=== PATIENT | female | born 1935 | race Caucasian/White ===

== ENCOUNTER 2021-07-15 13:05 | Emergency (ER) | payer MEDICARE, OTHER ==
[~2021-07-15] VITALS: Ht 157.5 cm; Wt 63.5 kg
[2021-07-15 13:30] LABS: HEMATOCRIT 38.6 % (31.2-41.9); MEAN CORPUSCULAR HEMOGLOBIN 31.6 uug (24.7-32.8); MEAN CORPUSCULAR VOLUME 92.7 fL (75.5-95.3); PLATELET COUNT (AUTO) 310 K/uL (179-408)
[2021-07-15 13:35] LABS: CREATININE 1.1 mg/dL (0.6-1.3); POTASSIUM 4.2 mmol/L (3.5-5.1)
[2021-07-15 13:38] LABS: MAGNESIUM 2.1 mg/dL (1.8-2.4); PHOSPHOROUS 4.5 mg/dL (2.5-4.9)
[2021-07-15 13:41] LABS: BILIRUBIN,DIRECT 0.2 mg/dL (0.0-0.2); BILIRUBIN,TOTAL 0.7 mg/dL (0.2-1.0)
[2021-07-15 14:49] LABS: *BILIRUBIN,URIN NEGATIVE (NEGATIVE); *BLOOD, URINE NEGATIVE (NEGATIVE); *CLARITY,URINE CLEAR (CLEAR); *COLOR,URINE YELLOW (YELLOW); *KETONES,URINE NEGATIVE (NEGATIVE); LEUKOCYTE ESTERASE ,URINE NEGATIVE (NEGATIVE); NITRITE, URINE NEGATIVE (NEGATIVE); UGLUCOSE NEGATIVE (NEGATIVE)
--- NOTE | 2021-07-15 16:18 | NUR ---
Patient discharged to home in stable condition. Written and verbal after care instructions given Dr Castanon. Patient and son verbalizes understanding of instructions. Stressed follow up or return to ER for worsening s/s.
[2021-07-15 16:19] VITALS: BP 157/51
== END 2021-07-15 16:20 | disposition home or self-care (01) ==
LOC: ER 13:05
DX: S09.90XA Unspecified injury of head, initial encounter (principal); S16.1XXA Strain of muscle, fascia and tendon at neck level, initial encounter; W01.0XXA Fall on same level from slipping, tripping and stumbling without subsequent striking against object, initial encounter; Y92.89 Other specified places as the place of occurrence of the external cause; F03.90 Unspecified dementia, unspecified severity, without behavioral disturbance, psychotic disturbance, mood disturbance, and anxiety; I44.7 Left bundle-branch block, unspecified
CPT/HCPCS: 36415; 70030-TC; 70450; 71045; 72125; 83735; 84100; 85025; 93005; A4663

== ENCOUNTER 2021-11-26 11:06 | Emergency (ER) | payer MEDICARE, OTHER ==
[~2021-11-26] VITALS: Ht 160 cm; Wt 68.0 kg
--- NOTE | 2021-11-26 11:18 | NUR ---
PT IS IN ROOM #2A. DR VALLEJO EVALUATED THE PT.
[2021-11-26] MEDS ORDERED: ONDANSETRON 4 MG/2 ML VIAL IV ONE ×2 (11:30→14:00)
[2021-11-26] MEDS ORDERED: MORPHINE SULFATE 2 MG/1 ML DISP.SYRIN IV ONE (11:30)
[2021-11-26] MEDS ORDERED: ONDANSETRON 4 MG/2 ML VIAL ONE ×2 (11:52→14:17)
[2021-11-26] MEDS ORDERED: MORPHINE SULFATE 4 MG/1 ML DISP.SYRIN ONE ×2 (11:52→14:16)
[2021-11-26 12:06] LABS: HEMATOCRIT 40.9 % (31.2-41.9); MEAN CORPUSCULAR HEMOGLOBIN 30.9 uug (24.7-32.8); MEAN CORPUSCULAR VOLUME 91.1 fL (75.5-95.3); PLATELET COUNT (AUTO) 387 K/uL (179-408)
[2021-11-26 12:12] LABS: CARBON DIOXIDE 30 mmol/L (21-32); CHLORIDE 100 mmol/L (98-107); CREATININE 1.2 mg/dL (0.6-1.3); GLUCOSE 124 mg/dL (74-106); POTASSIUM 3.6 mmol/L (3.5-5.1); UREA NITROGEN, BLOOD 27 mg/dL (7-18)
[2021-11-26 12:25] LABS: ALANINE AMINOTRANSFERASE 22 U/L (14-59); ALKALINE PHOSPHATASE 83 U/L (50-136); ASPARTATE AMINOTRANSFERASE 7 U/L (15-37); BILIRUBIN,DIRECT 0.2 mg/dL (0.0-0.2); BILIRUBIN,TOTAL 0.9 mg/dL (0.2-1.0); TOTAL PROTEIN, SERUM 7.6 g/dL (6.4-8.2)
[2021-11-26 13:06] LABS: *BILIRUBIN,URIN NEGATIVE (NEGATIVE); *BLOOD, URINE NEGATIVE (NEGATIVE); *COLOR,URINE YELLOW (YELLOW); *KETONES,URINE NEGATIVE (NEGATIVE); *UROBILINOGEN,URINE 0.2 E.U./dl (NORMAL); LEUKOCYTE ESTERASE ,URINE TRACE (NEGATIVE); NITRITE, URINE NEGATIVE (NEGATIVE); PH,URINE 5.5 (5.0-8.0); UGLUCOSE NEGATIVE (NEGATIVE)
[2021-11-26] MEDS ORDERED: HYDR-3972 PO (13:55)
[2021-11-26] MEDS ORDERED: MORPHINE SULFATE 4 MG/1 ML DISP.SYRIN IV ONE (14:00)
--- NOTE | 2021-11-26 14:39 | NUR ---
PT WAS D/C'd TO HOME. D/C INSTRUCTIONS GIVEN TO THE PT BY DR VALLEJO.
[2021-11-26 14:40] VITALS: BP 142/79
[2021-11-26 17:36] LABS: *CLARITY,URINE HAZY (CLEAR)
[2021-11-26 17:37] LABS: BACTERIA,URINE MODERATE /HPF (NONE SEEN); RBC,URINE 0-3 /HPF (0-3); SQUAMOUS EPITHELIAL CELL,UR FEW /HPF (NONE SEEN); URINE AMORPHOUS URATE FEW /HPF
== END 2021-11-26 14:41 | disposition home or self-care (01) ==
LOC: ER 11:06
DX: G89.29 Other chronic pain (principal); M54.2 Cervicalgia; M54.9 Dorsalgia, unspecified; F03.90 Unspecified dementia, unspecified severity, without behavioral disturbance, psychotic disturbance, mood disturbance, and anxiety; Z98.1 Arthrodesis status; M51.36 Other intervertebral disc degeneration, lumbar region; R29.6 Repeated falls; K21.9 Gastro-esophageal reflux disease without esophagitis; E78.5 Hyperlipidemia, unspecified; I10 Essential (primary) hypertension; M51.34 Other intervertebral disc degeneration, thoracic region
CPT/HCPCS: 36415; 70450; 72125; 72128; 72131; 80048; 80076; 81001; 83880; 84484; 85025; 85730; 87086; 96374; 96375; 96376; 99285; J2270 ×2; J2405 ×2; A4663; J7030

== ENCOUNTER 2022-04-12 10:26 | Inpatient (IN) | payer MEDICARE, OTHER ==
[~2022-04-12] VITALS: Ht 160 cm; Wt 63.6 kg
[~2022-04-12 10:26] MED LIST: HYDR-3972 PO
[2022-04-12] MEDS ORDERED: SWABABLE VALVE TRANSFER SET EA MC ONE (11:09)
[2022-04-12] MEDS ORDERED: IOHEXOL 350 100 ML INFUS..BTL ONE (11:09)
[2022-04-12] MEDS ORDERED: IV NORMAL SALINE 250 ML IV ONE (11:09)
[2022-04-12] MEDS ORDERED: MORPHINE SULFATE 2 MG/1 ML DISP.SYRIN IV ONE ×2 (11:15→13:15)
[2022-04-12] MEDS ORDERED: ONDANSETRON 4 MG/2 ML VIAL IV ONE (11:15)
[2022-04-12] MEDS ORDERED: IV NS 1000 ML 1,000 ML IV ONE (11:15)
[2022-04-12 11:21] LABS: HEMATOCRIT 38.2 % (31.2-41.9); MEAN CORPUSCULAR HEMOGLOBIN 31.1 uug (24.7-32.8); PLATELET COUNT (AUTO) 338 K/uL (179-408)
[2022-04-12 11:33] LABS: CARBON DIOXIDE 28 mmol/L (21-32); CHLORIDE 101 mmol/L (98-107); CREATININE 1.1 mg/dL (0.6-1.3); GLUCOSE 169 mg/dL (74-106); POTASSIUM 3.8 mmol/L (3.5-5.1); UREA NITROGEN, BLOOD 39 mg/dL (7-18)
[2022-04-12 11:35] LABS: ETHANOL < 3 MG/DL (0-0)
[2022-04-12] MEDS ORDERED: ONDANSETRON 4 MG/2 ML VIAL ONE (11:37)
[2022-04-12] MEDS ORDERED: MORPHINE SULFATE 2 MG/1 ML DISP.SYRIN ONE ×2 (11:37→13:11)
[2022-04-12 11:47] LABS: ALANINE AMINOTRANSFERASE 22 U/L (14-59); ALKALINE PHOSPHATASE 103 U/L (50-136); ASPARTATE AMINOTRANSFERASE 21 U/L (15-37); BILIRUBIN,DIRECT 0.4 mg/dL (0.0-0.2); BILIRUBIN,TOTAL 1.5 mg/dL (0.2-1.0); LIPASE 35 U/L (73-393); TOTAL PROTEIN, SERUM 6.8 g/dL (6.4-8.2)
[2022-04-12] MEDS ORDERED: DIAZEPAM 10 MG/2 ML DISP.SYRIN IV STA (13:12)
[2022-04-12] MEDS ORDERED: DIAZEPAM 10 MG/2 ML DISP.SYRIN ONE (13:15)
[2022-04-12] MEDS ORDERED: METHOCARBAMOL 1000 MG/10 ML VIAL IV ONE (13:15)
[2022-04-12 16:03] LABS: *BILIRUBIN,URIN 1+ (NEGATIVE); *BLOOD, URINE NEGATIVE (NEGATIVE); *CLARITY,URINE CLEAR (CLEAR); *COLOR,URINE DARK YELLOW (YELLOW); *KETONES,URINE 1+ (NEGATIVE); LEUKOCYTE ESTERASE ,URINE NEGATIVE (NEGATIVE); NITRITE, URINE NEGATIVE (NEGATIVE); PH,URINE 5.5 (5.0-8.0); UGLUCOSE NEGATIVE (NEGATIVE)
[2022-04-12 16:13] LABS: *AMPHETAMINE, URINE POSITIVE (NEGATIVE); *CANNABINOID, URINE NEGATIVE (NEGATIVE); *COCCAINE, URINE NEGATIVE (NEGATIVE); *OPIATE, URINE POSITIVE (NEGATIVE); *PHENCYCLIDINE SCREEN,URINE NEGATIVE (NEGATIVE)
[2022-04-12] MEDS ORDERED: ONDANSETRON 4 MG/2 ML VIAL IV PRN (18:15)
[2022-04-12] MEDS ORDERED: ACETAMINOPHEN 650 MG SUPP.RECT RC PRN (18:15)
--- NOTE | 2022-04-12 18:43 | NUR ---
Patient will be going [id number]
--- NOTE | 2022-04-12 20:34 | NUR ---
called upstairs the nurse will be Christie, she is busy at this time and she will call back for report.
--- NOTE | 2022-04-12 21:00 | NUR ---
report was given to Christie MADERA pt to go to room 312
--- NOTE | 2022-04-12 21:20 | NUR ---
pt transported to room 312 via [facility] with all belongings, CASSY Soriano at bedside to receive the pt.
--- NOTE | 2022-04-12 21:21 | NUR ---
nursing assessment was not performed on the day shift, it was done now.
[2022-04-12 21:25] VITALS: BP 108/64
--- NOTE | 2022-04-12 21:25 | NUR ---
Received pt from er via [facility].Under the care of Dr. Mcconnell. dx:right hip fracture.Pt in no acute distress. Iv intact. Pt on 2l nasal cannula. Belonging list done. [facility] assessment done. Safety and comfort provided. Will continue to monitor.
[2022-04-12] MEDS: MORPHINE SULFATE 2 MG/1 ML DISP.SYRIN IV PRN (22:17)
[2022-04-12] MEDS: IV D5 1/2 NS 1000 ML 1,000 ML IV PRN (22:22)
[2022-04-12] MEDS ORDERED: ALBUTEROL SULFATE 2.5 MG/3 ML NEBU NEB PRN (22:30)
--- NOTE | 2022-04-12 23:00 | NUR ---
Dr. Pillai called and ordered IM nailing of right hip for the pt. Surgery will be done after medically cleared by city planner.
--- NOTE | 2022-04-12 23:30 | NUR ---
Pt given Morphine 2mg prn at 2217H for right hip pain. Pt tolerated it well. After an hour pt calmer and stated the medication helped a bit but there's still pain. Will continue to monitor.
[2022-04-13 00:03] VITALS: BP 130/66
--- NOTE | 2022-04-13 00:51 | NUR ---
Pt woked up and speaking to herself and asking herself where she is? what is she doing here? . Pt forgetful and reorientation. Will continue to monitor.
[2022-04-13] MEDS: LORAZEPAM 2 MG/1 ML VIAL IV PRN ×3 (01:13→23:30)
--- NOTE | 2022-04-13 02:30 | NUR ---
At 0113H Ativan 0.5mg prn given to pt anxiety, restless, and trying to pull out her lock catheter and IV. Pt tolerated it well. After an hour pt medication effective as evidenced by pt calmer and not pulling out lines. Pt stable. Will continue to monitor.
[2022-04-13 04:09] VITALS: BP 120/55
--- NOTE | 2022-04-13 05:47 | NUR ---
Pt slept intermittently. Pt in no acute respiratory distress. Iv intact. Pt have episodes of forgetfulness. Frequent orientation needed. Pt on sinus rhythm.Pt lock catheter intact and draining dark yellow colored urine.Prescribed medication given and pt tolerated it well. All needs are met. Safety and comfort provided. Will endorse to incoming nurse for continuity of care.
[2022-04-13 06:50] LABS: HEMATOCRIT 32.9 % (31.2-41.9); MEAN CORPUSCULAR HEMOGLOBIN 31.6 uug (24.7-32.8); MEAN CORPUSCULAR VOLUME 92.5 fL (75.5-95.3); PLATELET COUNT (AUTO) 251 K/uL (179-408)
[2022-04-13 07:24] LABS: ALANINE AMINOTRANSFERASE 34 U/L (14-59); ALKALINE PHOSPHATASE 79 U/L (50-136); ASPARTATE AMINOTRANSFERASE 34 U/L (15-37); BILIRUBIN,TOTAL 1.4 mg/dL (0.2-1.0); CARBON DIOXIDE 27 mmol/L (21-32); CHLORIDE 102 mmol/L (98-107); CHOLESTEROL 107 mg/dL (<200); CREATININE 0.7 mg/dL (0.6-1.3); GLUCOSE 148 mg/dL (74-106); HDL CHOLESTEROL 59 mg/dL (40-60); PHOSPHOROUS 2.8 mg/dL (2.5-4.9); TOTAL PROTEIN, SERUM 5.8 g/dL (6.4-8.2); TRIGLYCERIDES 91 MG/DL (30-150); UREA NITROGEN, BLOOD 26 mg/dL (7-18)
[2022-04-13 07:29] LABS: POTASSIUM 2.7 mmol/L (3.5-5.1)
[2022-04-13 07:43] LABS: THYROID STIMULATING HORMONE 0.572 mIU/mL (0.358-3.740)
[2022-04-13] MEDS: PANTOPRAZOLE SODIUM 40 MG VIAL IV SCH (08:39)
[2022-04-13] MEDS ORDERED: POTASSIUM CHLORIDE 20 MEQ POWDER PACKET GT ONE (09:00)
[2022-04-13] MEDS ORDERED: POTASSIUM CHLORIDE 20 MEQ POWDER PACKET PO ONE (09:00)
[2022-04-13] MEDS: POTASSIUM CHLORIDE 50 ML IV SCH ×5 (09:01→13:22)
[2022-04-13] MEDS ORDERED: BISO1TAB99 PO (10:21)
[2022-04-13] MEDS ORDERED: ATOR20TA PO (10:21)
[2022-04-13] MEDS ORDERED: ESCI20TA PO (10:21)
[2022-04-13] MEDS ORDERED: LEVO100T10 PO (10:21)
[2022-04-13] MEDS ORDERED: BUPR-319 PO (10:21)
[2022-04-13] MEDS ORDERED: MIRA50TA PO (10:21)
[2022-04-13] MEDS ORDERED: GABA-532 PO (10:21)
[2022-04-13] MEDS: MORPHINE SULFATE 2 MG/1 ML DISP.SYRIN IV PRN ×2 (11:01→20:04)
[2022-04-13 12:00] VITALS: BP 162/66
[2022-04-13 14:03] LABS: *AMPHETAMINE, URINE POSITIVE (NEGATIVE); *CANNABINOID, URINE NEGATIVE (NEGATIVE); *COCCAINE, URINE NEGATIVE (NEGATIVE); *OPIATE, URINE POSITIVE (NEGATIVE); *PHENCYCLIDINE SCREEN,URINE NEGATIVE (NEGATIVE)
[2022-04-13] MEDS: AMLODIPINE 10 MG TABLET PO SCH (14:15)
[2022-04-13 16:00] VITALS: BP 154/58
[2022-04-13] MEDS: IV D5 1/2 NS 1000 ML 1,000 ML IV PRN (16:55)
--- NOTE | 2022-04-13 19:04 | NUR ---
PT IS CONFUSED AT TIME. DR ORDERED MITTEN RESTRAINT. PT TRYING TO PULL LINE AND GET OUT OF THE BED. GAVE ATIVAN Q6HR PRN PER MD ORDER. PT ONLY HAVE 1 CUP OF APPLE JUICE AND A CUP OF PUDDING ALL DAY. DR CHINCHILLA WILL VISIT AROUND 9AM FOR CARDIAC CLEARANCE. PT IS SCHEDULED FOR SURGERY JEFFRE[facility] AT 10AM PER DR PACE. WILL ENDORSED TO UPCOMING SHIFT ON GETTING A CONSENT.
[2022-04-13 20:00] VITALS: BP 147/51
--- NOTE | 2022-04-13 20:00 | NUR ---
PT WAS CRYING AND SCREAMING, COMPLAINING OF PAIN. MORPHINE GIVEN ORDERED. PT IS ON BECKA MITTENS. SKIN CHECKS DONE. NO WOUND NOTED FROM RESTRAINTS. WILL CONTINUE TO MONITOR.
--- NOTE | 2022-04-13 23:30 | NUR ---
PT IS VERY AGITATED WANTING TO GET OUT OF BED AND TRYING TO REMOVE BECKA MITTENS. ATIVAN GIVEN MD ORDERED. ALL NEEDS ATTENDED. WILL CONTINUE TO MONITOR.
[2022-04-14] VITALS: BP 128/68
[2022-04-14] MEDS: MORPHINE SULFATE 2 MG/1 ML DISP.SYRIN IV PRN ×3 (01:35→16:31)
--- NOTE | 2022-04-14 02:00 | NUR ---
PT IS ON NPO OF THIS TIME FOR SCHEDULED SURGERY TODAY AT 10AM.
[2022-04-14 04:00] VITALS: BP 153/66
--- NOTE | 2022-04-14 06:00 | NUR ---
PLACED STAT ORDER FOR POTASSIUM. NEEDED FOR SURGERY PER OR NURSE IMELDA. LAB INFORMED.
--- NOTE | 2022-04-14 06:30 | NUR ---
CALLED SON ALEXANDRE FAULKNER TO GET CONSENT FOR SURGERY. WITNESSED BY ANOTHER RN. PREOP CHECKLIST DONE. WAITING FOR CARDIO CLEARANCE FROM DR. CHINCHILLA. WILL ENDORSE TO INCOMING RN.
[2022-04-14 06:56] LABS: HEMATOCRIT 35.4 % (31.2-41.9); MEAN CORPUSCULAR HEMOGLOBIN 31.8 uug (24.7-32.8); PLATELET COUNT (AUTO) 256 K/uL (179-408)
[2022-04-14 07:16] LABS: CARBON DIOXIDE 24 mmol/L (21-32); CHLORIDE 100 mmol/L (98-107); CREATININE 0.6 mg/dL (0.6-1.3); GLUCOSE 146 mg/dL (74-106); PHOSPHOROUS 1.9 mg/dL (2.5-4.9); POTASSIUM 3.7 mmol/L (3.5-5.1); UREA NITROGEN, BLOOD 13 mg/dL (7-18)
[2022-04-14] MEDS: AMLODIPINE 10 MG TABLET PO SCH (09:00)
[2022-04-14] MEDS: PANTOPRAZOLE SODIUM 40 MG VIAL IV SCH (09:10)
[2022-04-14] MEDS ORDERED: VANCOMYCIN 1000 MG VIAL ONE (09:17)
--- NOTE | 2022-04-14 09:17 | NUR ---
DR CHINCHILLA CLEARED PT FOR SX. DR PACE NOTIFIED. SX WILL PROCEED AT 10 AM. PT IS NPO SINCE 2AM. PT IS SLEEPING. FC DRAINING WELL. NO ACUTE DISTRESS NOTED.
--- NOTE | 2022-04-14 09:41 | NUR ---
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 PT IS SLEEPING. ON ROOM AIR. BECKA MITTENS IS STILL ON.
[2022-04-14] MEDS ORDERED: FENTANYL CITRATE 100 MCG/2 ML AMPUL ONE ×2 (10:04→12:06)
[2022-04-14] MEDS ORDERED: ROCURONIUM BROMIDE 50 MG/5 ML VIAL ONE (10:04)
[2022-04-14] MEDS ORDERED: MIDAZOLAM HCL 2 MG/2 ML VIAL ONE (10:04)
[2022-04-14] MEDS ORDERED: hydrALAZINE HCL 20 MG/1 ML VIAL ONE (12:00)
--- NOTE | 2022-04-14 13:00 | NUR ---
PT CAME BACK FROM SURGERY. AWAKE BUT CONFUSED. ELEVATED BP WAS NOTED. 144/48 HR 85 98% SATURATION. NEW ORDER WAS PLACE D5 1/2 NS 20MEQ KCL @ 70CC/HR, ANCEF 1G Q8H X3 FIRST DOSE 1050AM, MORPHINE SULFATE 2MG IV Q2HR, NORCO 10-325MG PO Q4HR. DIET TOLERATED.HEPLOCK AFTER
[2022-04-14 16:00] VITALS: BP 136/52
[2022-04-14] MEDS: POTASSIUM CHLORIDE 20 MEQ in IV D5 1/2 NS 1000 ML 1,000 ML IV PRN (16:31)
[2022-04-14] MEDS ORDERED: SODIUM PHOSPHATE MM 15 MMOL in IV NORMAL SALINE 250 ML IV ONE (17:00)
[2022-04-14] MEDS: LORAZEPAM 2 MG/1 ML VIAL IV PRN (17:32)
--- NOTE | 2022-04-14 18:00 | NUR ---
PT IS CONFUSED AND AGITATED.PUT ON BECKA MITTENS FOR SAFETY. PT IS PULING LINES. GAVE PRN ATIVAN 1MG.
--- NOTE | 2022-04-14 20:00 | NUR ---
patient in bed asleep , no s/s/ of respiratory distress breathing even and unlabored .patient able to moved upper and lower slow and weak . patient unbale to follow commands confused .SR on the heart monitor .no s/s of pain . right hip post op site dressing CDI .MCMAHON to bsd with yellowish urine . ivf in progress via the left ac with d5 1/2 ns at 20 kcl at 75 ml/hr.hob up . continue to monitor v/s .
[2022-04-14] MEDS: CEFAZOLIN 1 G in IV DEXTROSE 5% 50 ML IV SCH (20:49)
--- NOTE | 2022-04-14 21:30 | NUR ---
rounds made turned and reposition patient .due medication given and scan . . checked iv site patent . patient sleeping no s/s of pain .
[2022-04-15] VITALS: BP 139/56
[2022-04-15 04:00] VITALS: BP 166/64
[2022-04-15] MEDS: CEFAZOLIN 1 G in IV DEXTROSE 5% 50 ML IV SCH (04:23)
[2022-04-15] MEDS: POTASSIUM CHLORIDE 20 MEQ in IV D5 1/2 NS 1000 ML 1,000 ML IV PRN (06:23)
[2022-04-15 06:46] LABS: HEMATOCRIT 35.7 % (31.2-41.9); MEAN CORPUSCULAR HEMOGLOBIN 31.2 uug (24.7-32.8); MEAN CORPUSCULAR VOLUME 92.1 fL (75.5-95.3); PLATELET COUNT (AUTO) 321 K/uL (179-408)
[2022-04-15 07:05] LABS: CREATININE 0.7 mg/dL (0.6-1.3); MAGNESIUM 1.8 mg/dL (1.8-2.4); PHOSPHOROUS 2.4 mg/dL (2.5-4.9); POTASSIUM 3.4 mmol/L (3.5-5.1)
[2022-04-15] MEDS: POTASSIUM CHLORIDE 50 ML IV SCH ×2 (07:53→08:47)
--- NOTE | 2022-04-15 08:00 | NUR ---
RECEIVED PATIENT IN BED RESTING COMFORTABLY, NO SIGNS OF ACUTE PAIN OR DISTRESS, IN 2L NC SATURATING 100%
[2022-04-15] MEDS ORDERED: POTASSIUM PHOSPHATE MM 7.5 MMOL in IV NORMAL SALINE 97.5 ML IV ONE (08:30)
[2022-04-15] MEDS: PANTOPRAZOLE SODIUM 40 MG VIAL IV SCH (08:46)
[2022-04-15] MEDS: AMLODIPINE 10 MG TABLET PO SCH (08:46)
--- NOTE | 2022-04-15 09:00 | NUR ---
LOW POTASSIUM NOTED BY DR LOCKE WITH ORDERS
[2022-04-15] MEDS ORDERED: SODIUM PHOSPHATE MM 15 MMOL in IV NORMAL SALINE 250 ML IV ONE (09:30)
--- NOTE | 2022-04-15 10:00 | NUR ---
DR PACE NOTIFIED OF NEED FOR POST OP ORDER WITH ORDER
[2022-04-15] MEDS: MORPHINE SULFATE 2 MG/1 ML DISP.SYRIN IV PRN ×3 (10:27→21:35)
[2022-04-15] MEDS ORDERED: BISOPROLOL FUMARATE PO SCH (10:30)
[2022-04-15] MEDS ORDERED: [UNRECOGNIZED DRUG - OTHER] PO SCH (10:30)
[2022-04-15] MEDS ORDERED: HCTZ PO SCH (10:30)
[2022-04-15] MEDS ORDERED: Medication Not On Formulary EA (Escitalopram Oxalate (Lexapro) 20 MG) PO SCH (10:30)
[2022-04-15] MEDS: HYDROCHLOROTHIAZIDE 12.5 MG CAPSULE PO SCH (10:49)
[2022-04-15] MEDS: ESCITALOPRAM OXALATE 10 MG TABLET PO SCH (10:49)
[2022-04-15] MEDS: ATENOLOL 25 MG TABLET PO SCH (10:54)
[2022-04-15] MEDS ORDERED: ONDANSETRON 4 MG/2 ML VIAL IV ONE (11:04)
[2022-04-15] MEDS ORDERED: METOCLOPRAMIDE HCL 10 MG/2 ML VIAL IV ONE (11:04)
[2022-04-15] MEDS ORDERED: SEVOFLURANE 250 ML BOTTLE IH ONE (11:04)
[2022-04-15] MEDS ORDERED: GLYCOPYRROLATE 0.2 MG/ML VIAL IJ ONE (11:04)
[2022-04-15] MEDS ORDERED: NEOSTIGMINE METHYLSULFATE 10 MG/10 ML VIAL IM ONE (11:04)
[2022-04-15] MEDS ORDERED: LIDOCAINE-MPF 2% 5 ML VIAL IJ ONE (11:04)
[2022-04-15] MEDS ORDERED: PROPOFOL 200 MG/20 ML BOTTLE IV ONE (11:04)
[2022-04-15] MEDS ORDERED: CEFAZOLIN 1 G VIAL IM ONE (11:04)
[2022-04-15 12:00] VITALS: BP 154/67
[2022-04-15 16:03] VITALS: BP 106/41
--- NOTE | 2022-04-15 16:48 | NUR ---
CONTINUE WITH PAIN MANAGEMENT, PATIENT ON O2 3L NC SATURATING 95-100%. AFEBRILE
--- NOTE | 2022-04-15 17:08 | NUR ---
DAUGHTER NOTIFIED OF [facility] WILL BRING MEDS IN AM
[2022-04-15 20:00] VITALS: BP 127/62
[2022-04-15] MEDS: GABAPENTIN 100 MG CAPSULE PO SCH (21:41)
--- NOTE | 2022-04-15 21:42 | NUR ---
PT IS CRYING AND YELLS. PT C/O PAIN IN NOSE. PAIN IS 09/28/ MORPHINW SULFATE ADMINISTERED RDERED, WITH EFFECTIVENESS. NO ADVERSE REACTION
[2022-04-16] MEDS: POTASSIUM CHLORIDE 20 MEQ in IV D5 1/2 NS 1000 ML 1,000 ML IV PRN ×2 (01:42→11:41)
[2022-04-16 04:00] VITALS: BP 149/58
--- NOTE | 2022-04-16 06:19 | NUR ---
PATIENT AWAKEN WITH PERSISTENT PRODUCTIVE COUGHS. WILL NOTIFY MD.PT IS AFEBRILE. PT IS ON ANTIBIOTICS
[2022-04-16 06:49] LABS: HEMATOCRIT 30.6 % (31.2-41.9); MEAN CORPUSCULAR HEMOGLOBIN 31.9 uug (24.7-32.8); MEAN CORPUSCULAR VOLUME 92.2 fL (75.5-95.3); PLATELET COUNT (AUTO) 328 K/uL (179-408)
--- NOTE | 2022-04-16 07:26 | NUR ---
HANDS OFF CARE OF PATIENT. PT IS ASLEEP IN NO DISTRESS. V/S NOTED IS WNL. HOB 30. REPORT ENDORSED TO AM RN.TO FOLLOW UP WITH ASSESSING PATIENT'S COUGHS. PATIENT IS IN NO DISTRESS. COUGHS SUBSIDED. PT IS ASLEEP. MCMAHON AND SKIN [facility]ARE RENDERED THIS SHIFT.
[2022-04-16 07:27] LABS: ALANINE AMINOTRANSFERASE 48 U/L (14-59); ALKALINE PHOSPHATASE 150 U/L (50-136); ASPARTATE AMINOTRANSFERASE 21 U/L (15-37); BILIRUBIN,TOTAL 0.9 mg/dL (0.2-1.0); CARBON DIOXIDE 34 mmol/L (21-32); CHLORIDE 101 mmol/L (98-107); CREATININE 0.5 mg/dL (0.6-1.3); GLUCOSE 123 mg/dL (74-106); MAGNESIUM 1.8 mg/dL (1.8-2.4); PHOSPHOROUS 2.2 mg/dL (2.5-4.9); POTASSIUM 3.6 mmol/L (3.5-5.1); TOTAL PROTEIN, SERUM 5.3 g/dL (6.4-8.2); UREA NITROGEN, BLOOD 6 mg/dL (7-18)
[2022-04-16] MEDS: AMLODIPINE 10 MG TABLET PO SCH (08:05)
[2022-04-16] MEDS: ESCITALOPRAM OXALATE 10 MG TABLET PO SCH (08:05)
[2022-04-16] MEDS: ATENOLOL 25 MG TABLET PO SCH (08:05)
[2022-04-16] MEDS: buPROPion XL 150 MG TAB.SR.24H PO SCH (08:12)
[2022-04-16] MEDS: PANTOPRAZOLE SODIUM 40 MG VIAL IV SCH (08:14)
[2022-04-16] MEDS: MORPHINE SULFATE 2 MG/1 ML DISP.SYRIN IV PRN ×2 (08:14→23:45)
[2022-04-16] MEDS ORDERED: Medication Not On Formulary EA (Bupropion Hcl (Bupropion Xl) 300 MG) PO SCH (09:00)
[2022-04-16] MEDS ORDERED: POTASSIUM PHOSPHATE MM 7.5 MMOL in IV NORMAL SALINE 97.5 ML IV ONE (10:00)
[2022-04-16 11:07] VITALS: BP 114/49
[2022-04-16] MEDS: LORAZEPAM 2 MG/1 ML VIAL IV PRN ×2 (12:31→23:08)
[2022-04-16] MEDS: ARGININE/GLUTAMINE/CALCIUM BMB 1 EACH POWD.PACK PO SCH ×2 (13:45→16:47)
[2022-04-16] MEDS: GLUCERNA SHAKE 237 ML CAN PO SCH ×2 (13:45→16:47)
[2022-04-16] MEDS: MYRBETRIQ 50MG TABLET PO SCH (14:00)
[2022-04-16 15:11] VITALS: BP 122/45
--- NOTE | 2022-04-16 20:00 | NUR ---
RECEIVED PATIENT IN BED. AAOX1, APPEARS CONFUSED. REORIENTED PATIENT ACCORDINGLY. IV ACCESS PATENT AND INTACT. WITH MCMAHON CATHETER, DRAINING CLEAR YELLOW URINE VIA GRAVITY. WITH DVT PUMPS. SAFETY AND ASPIRATION PRECAUTIONS INITIATED. WILL CONTINUE TO MONITOR.
[2022-04-16] MEDS: GABAPENTIN 100 MG CAPSULE PO SCH (20:29)
[2022-04-16 20:38] VITALS: BP 128/50
--- NOTE | 2022-04-16 23:10 | NUR ---
PATIENT NOTED TO BE AGITATED AND CONFUSED - SCREAMING AND ATTEMPTING TO PULL OUT BILATERAL SOFT MITTENS. REORIENTATION UNSUCCESSFUL. PRN ATIVAN GIVEN.
--- NOTE | 2022-04-16 23:30 | NUR ---
IV ACCESS NOTED TO DISLODGED AND INFILTRATED. ARM ELEVATED.
--- NOTE | 2022-04-16 23:50 | NUR ---
SECURED NEW IV ACCESS ON L FOREARM GAUGE 22.
[2022-04-17] MEDS: POTASSIUM CHLORIDE 20 MEQ in IV D5 1/2 NS 1000 ML 1,000 ML IV PRN ×2 (01:17→13:40)
[2022-04-17 04:31] VITALS: BP 142/65
[2022-04-17] MEDS: GLUCERNA SHAKE 237 ML CAN PO SCH ×3 (08:00→16:06)
[2022-04-17] MEDS: PANTOPRAZOLE SODIUM 40 MG VIAL IV SCH (08:14)
[2022-04-17] MEDS: ARGININE/GLUTAMINE/CALCIUM BMB 1 EACH POWD.PACK PO SCH ×2 (08:16→16:06)
[2022-04-17] MEDS: ATENOLOL 25 MG TABLET PO SCH (08:16)
[2022-04-17] MEDS: buPROPion XL 150 MG TAB.SR.24H PO SCH (08:16)
[2022-04-17] MEDS: MYRBETRIQ 50MG TABLET PO SCH (08:16)
[2022-04-17] MEDS: AMLODIPINE 10 MG TABLET PO SCH (08:16)
[2022-04-17] MEDS: ESCITALOPRAM OXALATE 10 MG TABLET PO SCH (08:16)
[2022-04-17] MEDS: HYDROCHLOROTHIAZIDE 12.5 MG CAPSULE PO SCH (08:29)
[2022-04-17] MEDS: LORAZEPAM 2 MG/1 ML VIAL IV PRN ×2 (08:59→23:06)
[2022-04-17 09:13] LABS: *BILIRUBIN,URIN NEGATIVE (NEGATIVE); *CLARITY,URINE CLEAR (CLEAR); *COLOR,URINE YELLOW (YELLOW); *KETONES,URINE NEGATIVE (NEGATIVE); LEUKOCYTE ESTERASE ,URINE TRACE (NEGATIVE); NITRITE, URINE NEGATIVE (NEGATIVE); PH,URINE 7.5 (5.0-8.0); UGLUCOSE NEGATIVE (NEGATIVE)
[2022-04-17 09:17] LABS: *BLOOD, URINE TRACE (NEGATIVE)
[2022-04-17 11:09] VITALS: BP 128/56
[2022-04-17 12:46] LABS: BACTERIA,URINE FEW /HPF (NONE SEEN); RBC,URINE 0-3 /HPF (0-3); SQUAMOUS EPITHELIAL CELL,UR FEW /HPF (NONE SEEN)
[2022-04-17 15:16] VITALS: BP 144/52
[2022-04-17] MEDS: MORPHINE SULFATE 2 MG/1 ML DISP.SYRIN IV PRN (15:45)
[2022-04-17] MEDS: GABAPENTIN 100 MG CAPSULE PO SCH (20:35)
[2022-04-17 20:46] VITALS: BP 140/65
--- NOTE | 2022-04-17 22:28 | NUR ---
RECEIVED PATIENT IN BED. AAOX1, INCOHERENT MUMBLING NOTED. IV ACCESS PATENT AND INTACT. WITH MCMAHON CATHETER, DRAINING CLEAR YELLOW URINE VIA GRAVITY. WITH DVT PUMPS. SAFETY AND ASPIRATION PRECAUTIONS INITIATED. WILL CONTINUE TO MONITOR.
[2022-04-17] MEDS ORDERED: PIPERACILLIN/TAZOBACTAM/D5W 50 ML IV ONE (23:11)
[2022-04-17] MEDS: PIPERACILLIN SODIUM/TAZOBACTAM 3.375 G in IV DEXTROSE 5% 50 ML IV SCH (23:18)
[2022-04-18] MEDS ORDERED: PIPERACILLIN/TAZOBACTAM/D5W 50 ML IV ONE (04:20)
[2022-04-18 04:44] VITALS: BP 149/51
[2022-04-18] MEDS: PIPERACILLIN SODIUM/TAZOBACTAM 3.375 G in IV DEXTROSE 5% 50 ML IV SCH (05:23)
--- NOTE | 2022-04-18 05:56 | NUR ---
PATIENT SLEPT THROUGH THE NIGHT WITH EPISODES OF CONFUSION AND INCOHERENT MUMBLING WHILE ASLEEP. PATIENT SHOWS NO SIGN OF DISTRESS. WITH BILATERAL MITTENS. IV ACCESS PATENT AND INTACT. MCMAHON CATHETER INTACT. SAFETY AND ASPIRATIONS PRECAUTIONS MAINTAINED.
[2022-04-18] MEDS: PANTOPRAZOLE ORAL SUSPENSION 40 MG SUSPDR.PKT PO SCH (06:09)
[2022-04-18] MEDS: MORPHINE SULFATE 2 MG/1 ML DISP.SYRIN IV PRN (06:27)
--- NOTE | 2022-04-18 06:30 | NUR ---
PATIENT NOTED TO BE IN DISTRESS AND CRYING INCONSOLABLY. PRN MORPHINE GIVEN.
[2022-04-18] MEDS: AMLODIPINE 10 MG TABLET PO SCH (08:00)
[2022-04-18] MEDS: ESCITALOPRAM OXALATE 10 MG TABLET PO SCH (08:01)
[2022-04-18] MEDS: buPROPion XL 150 MG TAB.SR.24H PO SCH (08:01)
[2022-04-18] MEDS: ATENOLOL 25 MG TABLET PO SCH (08:01)
[2022-04-18] MEDS: MYRBETRIQ 50MG TABLET PO SCH (08:01)
[2022-04-18] MEDS: ARGININE/GLUTAMINE/CALCIUM BMB 1 EACH POWD.PACK PO SCH ×2 (08:21→16:16)
[2022-04-18] MEDS: GLUCERNA SHAKE 237 ML CAN PO SCH ×3 (08:21→16:16)
[2022-04-18 09:55] LABS: HEMATOCRIT 33.6 % (31.2-41.9); MEAN CORPUSCULAR HEMOGLOBIN 31.2 uug (24.7-32.8); MEAN CORPUSCULAR VOLUME 91.2 fL (75.5-95.3); PLATELET COUNT (AUTO) 563 K/uL (179-408)
[2022-04-18 10:07] LABS: BILIRUBIN,TOTAL 1.2 mg/dL (0.2-1.0); CREATININE 0.8 mg/dL (0.6-1.3); MAGNESIUM 1.9 mg/dL (1.8-2.4); PHOSPHOROUS 3.2 mg/dL (2.5-4.9); POTASSIUM 4.2 mmol/L (3.5-5.1); TOTAL PROTEIN, SERUM 6.3 g/dL (6.4-8.2)
[2022-04-18 11:33] VITALS: BP 100/62
[2022-04-18] MEDS: PIPERACILLIN SODIUM/TAZOBACTAM 3.375 G in IV DEXTROSE 5% 100 ML IV SCH ×2 (13:50→21:24)
[2022-04-18] MEDS ORDERED: PIPERACILLIN SODIUM/TAZOBACTAM 3.375 G in IV DEXTROSE 5% 50 ML IV SCH (14:00)
[2022-04-18 16:10] VITALS: BP 103/61
[2022-04-18] MEDS: GABAPENTIN 100 MG CAPSULE PO SCH (21:24)
[2022-04-18] MEDS: LORAZEPAM 2 MG/1 ML VIAL IV PRN (21:27)
[2022-04-18 23:29] VITALS: BP 131/50
[2022-04-19 04:00] VITALS: BP 139/57
--- NOTE | 2022-04-19 05:26 | NUR ---
Pt noted to be restless at beginning of shift, screaming and trying to take off B mittens. Pt attempted to be redirected with no change in condition. Pt given ordered Ativan, tolerated well. Then noted to be crying saying she was in pain. Morphine given, tolerated well. No distress noted. IV site intact. Cates draining to gravity. Will endorse to day shift.
[2022-04-19] MEDS: PIPERACILLIN SODIUM/TAZOBACTAM 3.375 G in IV DEXTROSE 5% 100 ML IV SCH ×3 (06:18→21:30)
[2022-04-19] MEDS: PANTOPRAZOLE ORAL SUSPENSION 40 MG SUSPDR.PKT PO SCH (06:25)
[2022-04-19] MEDS: HYDROCHLOROTHIAZIDE 12.5 MG CAPSULE PO SCH (08:20)
[2022-04-19] MEDS: MYRBETRIQ 50MG TABLET PO SCH (08:20)
[2022-04-19] MEDS: buPROPion XL 150 MG TAB.SR.24H PO SCH (08:20)
[2022-04-19] MEDS: ESCITALOPRAM OXALATE 10 MG TABLET PO SCH (08:20)
[2022-04-19] MEDS: GLUCERNA SHAKE 237 ML CAN PO SCH ×3 (08:21→16:33)
[2022-04-19] MEDS: AMLODIPINE 10 MG TABLET PO SCH (08:21)
[2022-04-19] MEDS: ATENOLOL 25 MG TABLET PO SCH (08:21)
[2022-04-19] MEDS: ARGININE/GLUTAMINE/CALCIUM BMB 1 EACH POWD.PACK PO SCH ×2 (08:21→16:33)
[2022-04-19 11:02] VITALS: BP 103/79
[2022-04-19] MEDS: MORPHINE SULFATE 2 MG/1 ML DISP.SYRIN IV PRN ×3 (14:48→22:07)
[2022-04-19 15:15] VITALS: BP 96/53
[2022-04-19 20:00] VITALS: BP 135/77
[2022-04-19] MEDS: GABAPENTIN 100 MG CAPSULE PO SCH (20:34)
[2022-04-19] MEDS: LORAZEPAM 2 MG/1 ML VIAL IV PRN (23:11)
--- NOTE | 2022-04-20 05:56 | NUR ---
Pt very restless on and off throughout the night. B mittens in place, visual safety checks done. Cates draining to gravity. IV site intact. Will endorse to day shift.
[2022-04-20] MEDS: PIPERACILLIN SODIUM/TAZOBACTAM 3.375 G in IV DEXTROSE 5% 100 ML IV SCH ×2 (06:07→13:06)
[2022-04-20] MEDS: PANTOPRAZOLE ORAL SUSPENSION 40 MG SUSPDR.PKT PO SCH (06:08)
[2022-04-20 06:39] LABS: HEMATOCRIT 34.4 % (31.2-41.9); MEAN CORPUSCULAR HEMOGLOBIN 31.4 uug (24.7-32.8); MEAN CORPUSCULAR VOLUME 90.5 fL (75.5-95.3); PLATELET COUNT (AUTO) 488 K/uL (179-408)
[2022-04-20 07:09] LABS: CREATININE 0.8 mg/dL (0.6-1.3); PHOSPHOROUS 3.9 mg/dL (2.5-4.9); POTASSIUM 3.4 mmol/L (3.5-5.1); TOTAL PROTEIN, SERUM 6.4 g/dL (6.4-8.2)
[2022-04-20] MEDS: ATENOLOL 25 MG TABLET PO SCH (08:16)
[2022-04-20] MEDS: AMLODIPINE 10 MG TABLET PO SCH (08:16)
[2022-04-20] MEDS: ESCITALOPRAM OXALATE 10 MG TABLET PO SCH (08:16)
[2022-04-20] MEDS: ARGININE/GLUTAMINE/CALCIUM BMB 1 EACH POWD.PACK PO SCH (08:17)
[2022-04-20] MEDS: buPROPion XL 150 MG TAB.SR.24H PO SCH (08:17)
[2022-04-20] MEDS: MYRBETRIQ 50MG TABLET PO SCH (08:17)
[2022-04-20] MEDS: GLUCERNA SHAKE 237 ML CAN PO SCH ×2 (08:17→11:37)
[2022-04-20] MEDS ORDERED: POTASSIUM CHLORIDE 50 ML IV SCH (09:00)
[2022-04-20] MEDS: POTASSIUM CHLORIDE 10 MEQ, LIDOCAINE-MPF 1% 1 ML in IV DEXTROSE 5% 100 ML IV SCH ×2 (09:47→11:11)
[2022-04-20] MEDS ORDERED: ENOX40DI SQ (10:34)
[2022-04-20 11:14] VITALS: BP 127/51
[2022-04-20] MEDS: LORAZEPAM 2 MG/1 ML VIAL IV PRN (13:14)
--- NOTE | 2022-04-20 16:44 | NUR ---
dc orders received noted and carried out, dc instruction and rn report given to the longterm ,dc folly catheter and iv heplock removed per md orders.pt left the facility via ambulances in stable condition
== END 2022-04-20 16:35 | DRG 480 ==
LOC: ER 10:27 → TELE3 20:59 → MEDSURG3 04-15 08:34
PROVIDERS: ADMIT Internal Medicine; ATTEND Internal Medicine
PROC: 0QS606Z Reposition Right Upper Femur with Intramedullary Internal Fixation Device, Open Approach (ICD-10-PCS; principal; 2022-04-14)
DX: S72.141A Displaced intertrochanteric fracture of right femur, initial encounter for closed fracture (principal); G92.8 Other toxic encephalopathy; N17.0 Acute kidney failure with tubular necrosis; S32.039A Unspecified fracture of third lumbar vertebra, initial encounter for closed fracture; S32.049A Unspecified fracture of fourth lumbar vertebra, initial encounter for closed fracture; D68.59 Other primary thrombophilia; I67.82 Cerebral ischemia; G91.2 (Idiopathic) normal pressure hydrocephalus; E87.1 Hypo-osmolality and hyponatremia; W18.11XA Fall from or off toilet without subsequent striking against object, initial encounter; Y92.89 Other specified places as the place of occurrence of the external cause; J43.9 Emphysema, unspecified; Z74.09 Other reduced mobility; E11.65 Type 2 diabetes mellitus with hyperglycemia; Z87.440 Personal history of urinary (tract) infections; Q27.8 Other specified congenital malformations of peripheral vascular system; R29.6 Repeated falls; Z87.891 Personal history of nicotine dependence; K57.30 Diverticulosis of large intestine without perforation or abscess without bleeding; K21.9 Gastro-esophageal reflux disease without esophagitis; R29.890 Loss of height; F03.90 Unspecified dementia, unspecified severity, without behavioral disturbance, psychotic disturbance, mood disturbance, and anxiety; E87.6 Hypokalemia; D72.829 Elevated white blood cell count, unspecified; I34.0 Nonrheumatic mitral (valve) insufficiency; I44.7 Left bundle-branch block, unspecified; I11.9 Hypertensive heart disease without heart failure; F32.A Depression, unspecified; Z98.1 Arthrodesis status; I70.0 Atherosclerosis of aorta; Z20.822 Contact with and (suspected) exposure to COVID-19; M19.90 Unspecified osteoarthritis, unspecified site; R91.8 Other nonspecific abnormal finding of lung field; Z87.898 Personal history of other specified conditions
CPT/HCPCS: 36415; 70450; 71045; 71275; 72125; 72131; 72170; 73030; 73060; 73080; 73503; 73551; 83605; 83690; 83735; 84100; 84443; 84484; 85025; 85730; 87086; 93005; 93307; 97161; A4649; A6209; C1713; C9113; G0378; G0480; J0360; J0690; J2001; J2060; J2250; J2270; J2405; J2543; J2765; J2800; J3010; J3360; J3370; J3480; J3490; J7040; Q9967

== ENCOUNTER 2022-04-26 10:50 | Inpatient (IN) | payer MEDICARE, OTHER ==
[~2022-04-26] VITALS: Ht 160 cm; Wt 68.0 kg
[~2022-04-26 10:50] MED LIST changes: +ATOR20TA PO; +BISO1TAB99 PO; +BUPR-319 PO; +ENOX40DI SQ; +ESCI20TA PO; +GABA-532 PO; -HYDR-3972 PO; +LEVO100T10 PO; +MIRA50TA PO
[2022-04-26] MEDS ORDERED: ACET-2154 PO (11:25)
[2022-04-26] MEDS ORDERED: HYDR-3972 PO (11:25)
[2022-04-26] MEDS ORDERED: FAMO-132 PO (11:25)
[2022-04-26] MEDS ORDERED: BISA10SU61 RC (11:25)
[2022-04-26] MEDS ORDERED: MULT-594 PO (11:25)
[2022-04-26] MEDS ORDERED: DOCU-141 PO (11:26)
--- NOTE | 2022-04-26 11:38 | NUR ---
Patient taken for CT.
[2022-04-26 11:45] LABS: HEMATOCRIT 35.1 % (31.2-41.9); MEAN CORPUSCULAR HEMOGLOBIN 30.7 uug (24.7-32.8); MEAN CORPUSCULAR VOLUME 91.6 fL (75.5-95.3); PLATELET COUNT (AUTO) 571 K/uL (179-408)
[2022-04-26 12:05] LABS: THYROID STIMULATING HORMONE 14.863 mIU/mL (0.358-3.740)
[2022-04-26 12:06] LABS: ETHANOL < 3 MG/DL (0-0)
[2022-04-26 12:22] LABS: CARBON DIOXIDE 30 mmol/L (21-32); CHLORIDE 103 mmol/L (98-107); CREATININE 0.9 mg/dL (0.6-1.3); GLUCOSE 118 mg/dL (74-106); POTASSIUM 3.5 mmol/L (3.5-5.1); UREA NITROGEN, BLOOD 25 mg/dL (7-18)
[2022-04-26 12:35] LABS: ACETAMINOPHEN < 10.0 ug/mL (10-30); ALANINE AMINOTRANSFERASE 10 U/L (14-59); ALKALINE PHOSPHATASE 150 U/L (50-136); ASPARTATE AMINOTRANSFERASE 8 U/L (15-37); BILIRUBIN,DIRECT 0.2 mg/dL (0.0-0.2); BILIRUBIN,TOTAL 0.6 mg/dL (0.2-1.0); TOTAL PROTEIN, SERUM 7.2 g/dL (6.4-8.2)
[2022-04-26] MEDS ORDERED: MORPHINE SULFATE 2 MG/1 ML DISP.SYRIN IV ONE (13:45)
[2022-04-26] MEDS ORDERED: KETOROLAC TROMETHAMINE 15 MG INJ IVP ONE (13:45)
[2022-04-26] MEDS ORDERED: KETOROLAC TROMETHAMINE 15 MG INJ ONE (14:08)
[2022-04-26] MEDS ORDERED: MORPHINE SULFATE 2 MG/1 ML DISP.SYRIN ONE (14:08)
[2022-04-26] MEDS ORDERED: IV NS 1000 ML 1,000 ML IV ONE (15:45)
[2022-04-26] MEDS ORDERED: CEFTRIAXONE 1 G in IV DEXTROSE 5% 50 ML IV ONE (15:45)
[2022-04-26] MEDS ORDERED: CEFTRIAXONE /D5W 50ML IVPB **ER PYXIS IV ONE (15:46)
--- NOTE | 2022-04-26 16:52 | NUR ---
Report given to CASSY Siddiqi.
[2022-04-26] MEDS ORDERED: MAGNESIUM HYDROXIDE 30 ML LIQUID UDC PO PRN (17:00)
[2022-04-26] MEDS ORDERED: REMEDY ESSENTIAL ZINC PASTE 113 GM TP PRN (17:00)
[2022-04-26] MEDS ORDERED: ONDANSETRON 4 MG/2 ML VIAL IV PRN (17:00)
[2022-04-26] MEDS ORDERED: HYDROCODONE/APAP 5-325MG TABLET PO PRN (17:00)
[2022-04-26] MEDS ORDERED: MORPHINE SULFATE 2 MG/1 ML DISP.SYRIN IV PRN (17:00)
--- NOTE | 2022-04-26 18:43 | NUR ---
Brought via wc from ED awake and alert, oriented to name only, confused unaware of safety needs, slightly agitated. Admit to medsurg dx: fall. No resp distress on room air satting 97%. Denies pain. Initial skin check done and filed in chart. Bed at lowest and locked, siderails up x2, fall precautions in place. Changed and made comfortable. Call light in reach. Dr. Mercedes aware.
[2022-04-26] MEDS ORDERED: REMEDY ESSENTIAL ZINC PASTE 113 GM TOP PRN (18:45)
[2022-04-26 18:47] VITALS: BP 119/72
--- NOTE | 2022-04-26 19:02 | NUR ---
Assessment not finished. endorsed to next shift.
--- NOTE | 2022-04-26 19:30 | NUR ---
RECEIVED PATIENT IN BED. PATIENT IS ALERT TO SELF. VERY HOSTILE AND VERBALLY ABUSIVE WHEN APPROACHED. EASILY AGITATED. MADE COMFORTABLE IN BED. BED ALARM ON. ALL NEEDS ATTENDED. WILL CONTINUE TO MONITOR AND ASSESS.
[2022-04-26 20:06] VITALS: BP 101/58
[2022-04-26] MEDS: LORAZEPAM 2 MG/1 ML VIAL IV PRN (20:13)
--- NOTE | 2022-04-26 20:30 | NUR ---
PATIENT GIVEN ATIVAN 1MG IV PER VEHICLE BODY MAKER FOR SEVERE AGITATION. VSS. WILL CONTINUE TO MONITOR AND ASSESS.
[2022-04-26] MEDS: GABAPENTIN 100 MG CAPSULE PO SCH (20:32)
[2022-04-26] MEDS: DOCUSATE SODIUM 100 MG CAPSULE PO SCH (20:32)
[2022-04-26] MEDS: IV NS 1000 ML 1,000 ML IV PRN (20:44)
[2022-04-27 05:53] LABS: HEMATOCRIT 33.2 % (31.2-41.9); MEAN CORPUSCULAR HEMOGLOBIN 31.3 uug (24.7-32.8); MEAN CORPUSCULAR VOLUME 92.7 fL (75.5-95.3); PLATELET COUNT (AUTO) 491 K/uL (179-408)
[2022-04-27 06:03] LABS: CREATININE 0.8 mg/dL (0.6-1.3); POTASSIUM 3.3 mmol/L (3.5-5.1)
[2022-04-27] MEDS: LEVOTHYROXINE SODIUM 100 MCG TABLET PO SCH (06:11)
[2022-04-27 06:49] VITALS: BP 175/61
--- NOTE | 2022-04-27 07:53 | NUR ---
In bed awakens easily. No ss of pain or distress breathing non labored. Restraints in place for pulling on lines. Easily agitated. Reoriented prn. Oriented to name only. IVF infusing as ordered via marilu midline. No infiltration noted. Safety measures in place. Needs attended.
--- NOTE | 2022-04-27 08:00 | NUR ---
bedisde swallow eval done. no coughing, no signs of aspiration noted
[2022-04-27] MEDS ORDERED: Medication Not On Formulary EA (Mirabegron (Myrbetriq) 50 MG) PO SCH (09:00)
[2022-04-27] MEDS: POTASSIUM CHLORIDE 50 ML IV SCH ×4 (09:51→12:58)
[2022-04-27] MEDS: IV NS 1000 ML 1,000 ML IV PRN (09:54)
[2022-04-27] MEDS: ENOXAPARIN SODIUM 40 MG/0.4 ML DISP.SYRIN SQ SCH (09:56)
[2022-04-27] MEDS: ESCITALOPRAM OXALATE 10 MG TABLET PO SCH (09:59)
[2022-04-27] MEDS: buPROPion XL 150 MG TAB.SR.24H PO SCH (10:00)
[2022-04-27] MEDS: FAMOTIDINE 20 MG TABLET PO SCH (10:00)
[2022-04-27 10:44] LABS: *BILIRUBIN,URIN NEGATIVE (NEGATIVE); *BLOOD, URINE NEGATIVE (NEGATIVE); *CLARITY,URINE CLEAR (CLEAR); *COLOR,URINE YELLOW (YELLOW); *KETONES,URINE NEGATIVE (NEGATIVE); *UROBILINOGEN,URINE 0.2 E.U./dl (NORMAL); LEUKOCYTE ESTERASE ,URINE NEGATIVE (NEGATIVE); NITRITE, URINE NEGATIVE (NEGATIVE); PH,URINE 5.5 (5.0-8.0); UGLUCOSE NEGATIVE (NEGATIVE)
[2022-04-27 10:59] LABS: *AMPHETAMINE, URINE NEGATIVE (NEGATIVE); *CANNABINOID, URINE NEGATIVE (NEGATIVE); *COCCAINE, URINE NEGATIVE (NEGATIVE); *OPIATE, URINE POSITIVE (NEGATIVE); *PHENCYCLIDINE SCREEN,URINE NEGATIVE (NEGATIVE)
[2022-04-27 11:50] VITALS: BP 144/62
[2022-04-27 15:52] VITALS: BP 133/66
--- NOTE | 2022-04-27 19:31 | NUR ---
rested between care, safety measures in place. needs attended. no distress noted.
[2022-04-27 20:00] VITALS: BP 112/54
[2022-04-27] MEDS: DOCUSATE SODIUM 100 MG CAPSULE PO SCH (21:42)
[2022-04-27] MEDS: GABAPENTIN 100 MG CAPSULE PO SCH (21:42)
[2022-04-27] MEDS: ACETAMINOPHEN 325 MG TABLET PO PRN (21:43)
[2022-04-28] MEDS: IV NS 1000 ML 1,000 ML IV PRN ×2 (00:24→14:56)
[2022-04-28 04:00] VITALS: BP 117/75
[2022-04-28] MEDS: LEVOTHYROXINE SODIUM 100 MCG TABLET PO SCH (06:34)
[2022-04-28 06:49] LABS: HEMATOCRIT 35.9 % (31.2-41.9); MEAN CORPUSCULAR HEMOGLOBIN 31.4 uug (24.7-32.8); MEAN CORPUSCULAR VOLUME 92.5 fL (75.5-95.3); PLATELET COUNT (AUTO) 520 K/uL (179-408)
[2022-04-28 07:33] LABS: BILIRUBIN,TOTAL 0.4 mg/dL (0.2-1.0); CREATININE 0.6 mg/dL (0.6-1.3); PHOSPHOROUS 3.2 mg/dL (2.5-4.9); POTASSIUM 3.6 mmol/L (3.5-5.1); TOTAL PROTEIN, SERUM 6.8 g/dL (6.4-8.2)
[2022-04-28] MEDS: ESCITALOPRAM OXALATE 10 MG TABLET PO SCH (08:10)
[2022-04-28] MEDS: FAMOTIDINE 20 MG TABLET PO SCH (08:10)
[2022-04-28] MEDS: ENOXAPARIN SODIUM 40 MG/0.4 ML DISP.SYRIN SQ SCH (08:11)
[2022-04-28] MEDS: buPROPion XL 150 MG TAB.SR.24H PO SCH (08:11)
--- NOTE | 2022-04-28 11:14 | NUR ---
Patient is complaining about neck pain, says pain is strong and sharp when she mo0v
--- NOTE | 2022-04-28 11:15 | NUR ---
Patient is complaining about neck pain, says pain is strong and sharp when she moves her neck. I tried to sit her up to take orthostatic BP but patient said its too painful for her to sit up and hold her neck upright.
[2022-04-28 11:44] VITALS: BP 151/55
--- NOTE | 2022-04-28 15:33 | NUR ---
Got patient's orthostatics: BP laying down 132/52, p 74 Sitting 147/57, p 78 Standing 144/56, p 81 Patient tolerated well. Before that she complained on pain in her neck and was given [place].
[2022-04-28 15:58] VITALS: BP 133/51
--- NOTE | 2022-04-28 19:39 | NUR ---
RECEIVED PATIENT IN BED. AAOX2, FORGETFUL. ON 2L O2, SATURATING AT 100%, REMOVED O2 PATIENT IS SATURATING AT 99%. PATIENT DENIES SOB, CHEST PAIN. WITH MCMAHON CATHETER DRAINING, CLEAR YELLOW URINE. R HIP DRESSING INTACT, NO BLEEDING NOTED. SAFETY PRECAUTIONS IN PLACE. WILL CONTINUE TO MONITOR.
[2022-04-28 20:00] VITALS: BP 124/51
[2022-04-28] MEDS: GABAPENTIN 100 MG CAPSULE PO SCH (20:13)
[2022-04-28] MEDS: DOCUSATE SODIUM 100 MG CAPSULE PO SCH (20:13)
[2022-04-28] MEDS: ACETAMINOPHEN 325 MG TABLET PO PRN (21:39)
[2022-04-28] MEDS: LORAZEPAM 2 MG/1 ML VIAL IV PRN (22:27)
[2022-04-29] MEDS: IV NS 1000 ML 1,000 ML IV PRN ×2 (02:57→16:21)
[2022-04-29 05:02] VITALS: BP 118/58
--- NOTE | 2022-04-29 05:25 | NUR ---
PATIENT SLEPT THROUGH THE NIGHT. IVF INFUSING WELL. MCMAHON CATHETER INTACT. SAFETY PRECAUTIONS MAINTAINED.
[2022-04-29 06:40] LABS: HEMATOCRIT 36.3 % (31.2-41.9); MEAN CORPUSCULAR HEMOGLOBIN 31.8 uug (24.7-32.8); PLATELET COUNT (AUTO) 524 K/uL (179-408)
[2022-04-29] MEDS ORDERED: LEVOTHYROXINE SODIUM 125 MCG TABLET PO SCH (07:00)
[2022-04-29 07:24] LABS: CREATININE 0.7 mg/dL (0.6-1.3); MAGNESIUM 1.9 mg/dL (1.8-2.4); PHOSPHOROUS 3.2 mg/dL (2.5-4.9); POTASSIUM 3.5 mmol/L (3.5-5.1)
[2022-04-29] MEDS ORDERED: POTASSIUM CHLORIDE 20 MEQ TAB.PRT.SR PO ONE (08:15)
[2022-04-29] MEDS ORDERED: POTASSIUM CHLORIDE 20 MEQ POWDER PACKET PO ONE (08:15)
[2022-04-29] MEDS: buPROPion XL 150 MG TAB.SR.24H PO SCH (08:30)
[2022-04-29] MEDS: ESCITALOPRAM OXALATE 10 MG TABLET PO SCH (08:30)
[2022-04-29] MEDS: FAMOTIDINE 20 MG TABLET PO SCH (08:30)
[2022-04-29] MEDS: ENOXAPARIN SODIUM 40 MG/0.4 ML DISP.SYRIN SQ SCH (08:31)
--- NOTE | 2022-04-29 09:00 | NUR ---
Received patient sleeping in bed. Patient woke up for routine medications, no distress, but complained of some pain in her neck. Offered her a pillow and a towel roll under her neck to relieve pressure, patient said it felt better. Will continue to monitor.
[2022-04-29 11:00] VITALS: BP 90/65
[2022-04-29] MEDS ORDERED: ENSURE WITH FIBER 237 ML LIQUID (CHOCOLATE) PO SCH (12:15)
[2022-04-29] MEDS ORDERED: ARGININE/GLUTAMINE/CALCIUM BMB 1 EACH POWD.PACK PO SCH (12:15)
[2022-04-29] MEDS: ACETAMINOPHEN 325 MG TABLET PO PRN (14:11)
[2022-04-29] MEDS ORDERED: NUTR1PAC14 PO (14:16)
[2022-04-29] MEDS ORDERED: LEVO125T8 PO (14:16)
[2022-04-29] MEDS ORDERED: MAGN400O6 PO (14:16)
[2022-04-29] MEDS ORDERED: Lactose-Free Food/Fiber PO (14:16)
[2022-04-29] MEDS ORDERED: ENOX40DI SQ (14:16)
[2022-04-29 16:00] VITALS: BP 142/48
--- NOTE | 2022-04-29 16:43 | NUR ---
Patient is being discharged to ARU. Patient is stable at this time, vitals are stable.
== END 2022-04-29 17:01 | DRG 56 ==
LOC: ER 10:50 → MEDSURG3 17:49
PROVIDERS: ADMIT Internal Medicine; ATTEND Internal Medicine
PROC: 05H533Z Insertion of Infusion Device into Right Subclavian Vein, Percutaneous Approach (ICD-10-PCS; principal; 2022-04-26)
PROC: B546ZZA Ultrasonography of Right Subclavian Vein, Guidance (ICD-10-PCS; 2022-04-26)
DX: G91.2 (Idiopathic) normal pressure hydrocephalus (principal); G92.8 Other toxic encephalopathy; N17.0 Acute kidney failure with tubular necrosis; D68.59 Other primary thrombophilia; R55 Syncope and collapse; R29.6 Repeated falls; W19.XXXA Unspecified fall, initial encounter; Y92.129 Unspecified place in nursing home as the place of occurrence of the external cause; F03.90 Unspecified dementia, unspecified severity, without behavioral disturbance, psychotic disturbance, mood disturbance, and anxiety; I44.7 Left bundle-branch block, unspecified; Z91.81 History of falling; K21.9 Gastro-esophageal reflux disease without esophagitis; E11.9 Type 2 diabetes mellitus without complications; Z74.09 Other reduced mobility; M19.90 Unspecified osteoarthritis, unspecified site; D72.829 Elevated white blood cell count, unspecified; I11.9 Hypertensive heart disease without heart failure; M50.30 Other cervical disc degeneration, unspecified cervical region; J44.9 Chronic obstructive pulmonary disease, unspecified; E78.5 Hyperlipidemia, unspecified; K57.30 Diverticulosis of large intestine without perforation or abscess without bleeding; R93.89 Abnormal findings on diagnostic imaging of other specified body structures; Z79.890 Hormone replacement therapy; Z87.891 Personal history of nicotine dependence; F32.A Depression, unspecified; Z96.641 Presence of right artificial hip joint; Z20.822 Contact with and (suspected) exposure to COVID-19
CPT/HCPCS: 36415; 70450; 71045; 72125; 83605; 83735; 84100; 84443; 84484; 85025; 85730; 87040; 87086; 97161; A4663; G0378; G0480; J0696; J1650; J1885; J2060; J2270; J3480; J7040

== ENCOUNTER 2022-04-29 17:16 | Inpatient (IN) | payer MEDICARE, OTHER ==
[~2022-04-29] VITALS: Ht 160 cm; Wt 68.0 kg
[~2022-04-29 17:16] MED LIST changes: +ACET-2154 PO; +BISA10SU61 RC; +DOCU-141 PO; +FAMO-132 PO; +HYDR-3972 PO; +LEVO125T8 PO; +Lactose-Free Food/Fiber PO; +MAGN400O6 PO; +MULT-594 PO; +NUTR1PAC14 PO
[2022-04-29] MEDS ORDERED: MAGNESIUM HYDROXIDE 30 ML LIQUID UDC PO PRN (18:30)
[2022-04-29] MEDS ORDERED: HYDROCODONE/APAP 5-325MG TABLET PO PRN (18:30)
[2022-04-29] MEDS ORDERED: ACETAMINOPHEN 325 MG TABLET PO PRN (18:30)
--- NOTE | 2022-04-29 19:00 | NUR ---
Admission report received from Am nurse. Routine admission care done. Plan of care initiated. Safety measures and fall precaution initiated.
--- NOTE | 2022-04-29 19:00 | NUR ---
Adf Addendum: 04/29/22 at 2130 by GABRIELE ZAMORA RN error.
[2022-04-29] MEDS ORDERED: REMEDY ESSENTIAL ZINC PASTE 113 GM TP PRN (19:15)
[2022-04-29 20:32] VITALS: BP 126/49
--- NOTE | 2022-04-29 20:55 | NUR ---
[facility] called that bed is now available. Charge Nurse made aware.
[2022-04-29] MEDS ORDERED: GABAPENTIN 100 MG CAPSULE PO SCH (21:00)
[2022-04-29] MEDS ORDERED: REMEDY ESSENTIAL ZINC PASTE 113 GM TOP SCH (21:00)
[2022-04-29] MEDS ORDERED: DOCUSATE SODIUM 100 MG CAPSULE PO SCH (21:00)
--- NOTE | 2022-04-29 21:08 | NUR ---
Informed patient daughter Christianne Leary that bed is now available at [facility] and patient will be transferred soon and she's consenting the transfer.
--- NOTE | 2022-04-29 22:24 | NUR ---
Patient was picked up by [facility] in stable condition.
[2022-04-30] MEDS ORDERED: LEVOTHYROXINE SODIUM 125 MCG TABLET PO SCH (07:00)
[2022-04-30] MEDS ORDERED: Medication Not On Formulary EA (Bupropion Hcl (Bupropion Xl) 300 MG) PO SCH (09:00)
[2022-04-30] MEDS ORDERED: ENOXAPARIN SODIUM 40 MG/0.4 ML DISP.SYRIN SQ SCH (09:00)
[2022-04-30] MEDS ORDERED: ENSURE WITH FIBER 237 ML LIQUID (CHOCOLATE) PO SCH (09:00)
[2022-04-30] MEDS ORDERED: FAMOTIDINE 20 MG TABLET PO SCH (09:00)
[2022-04-30] MEDS ORDERED: buPROPion XL 150 MG TAB.SR.24H PO SCH (09:00)
[2022-04-30] MEDS ORDERED: Medication Not On Formulary EA ([Lactose-Free Food/Fiber] 237 ML) PO SCH (09:00)
[2022-04-30] MEDS ORDERED: MULTIVITAMINS,THERAPEUTIC TABLET PO SCH (09:00)
[2022-04-30] MEDS ORDERED: ESCITALOPRAM OXALATE 10 MG TABLET PO SCH (09:00)
[2022-04-30] MEDS ORDERED: Medication Not On Formulary EA (Multivitamins (Multivitamin) 1 TAB) PO SCH (09:00)
[2022-04-30] MEDS ORDERED: ARGININE/GLUTAMINE/CALCIUM BMB 1 EACH POWD.PACK PO SCH (09:00)
== END 2022-04-29 22:46 | disposition short-term general hospital (02) | DRG 93 ==
PROVIDERS: ADMIT Physical Medicine & Rehabilitation Pain Medicine; ATTEND Physical Medicine & Rehabilitation Pain Medicine
DX: G92.8 Other toxic encephalopathy (principal)